=== PATIENT | male | born 1950 | race Caucasian/White ===

== ENCOUNTER → 2020-02-08 09:59 | Outpatient (CLI) | payer MEDICARE, OTHER, SELFPAY ==
--- NOTE | ~2020-02-08 | XR_ITS ---
EXAMINATION: CT abdomen pelvis wo con, XR abdomen/kub 1V DATE: 02/08/2020 10:21 INDICATION: Flank pain. TECHNIQUE: 1. Computed tomography (CT) of the abdomen and pelvis was performed without intravenous contrast. Aut omated exposure control and iterative reconstruction technique were employed. The dose-length product was 1008.26 mGy-cm. 2. AP view of the abdomen and pelvis was obtained on 2 radiographs. COMPARISON: CT dated 11/29/2016 and KUB dated 12/01/2017 FINDINGS: CT: Chronic peripheral atelectasis/scarring in the bilateral lower lobes. Pneumatocele and small calcifie d granuloma in the right lower lobe. Heart size is normal. Atherosclerotic coronary artery calcificat ion. No pericardial or pleural effusion. Single small hepatic calcified calcification and several spl enic calcifications consistent with old granulomatous disease. Gallbladder, pancreas and bilateral ad renal glands are normal. 8 mm exophytic right renal lesion most likely a cyst but which is too small to definitively characterize. Nonobstructing 1 mm stone in the upper pole calyx of the right kidney a nd 3 mm stone at a lower pole calyx of the left kidney. Several small parapelvic cysts at the left ki dney. No hydronephrosis or stones seen along the course of the ureters. There is moderate colonic div erticulosis with a sigmoid predominance. There is no adjacent inflammatory change to suggest diverti culitis. No bowel obstruction. The appendix is not visualized. No pericecal inflammatory change to arguelles ggest acute appendicitis. Bladder is normal. No free intraperitoneal gas or fluid. No pathologically enlarged abdominal or pelvic lymphadenopathy. Small fat-containing umbilical hernia. Mild lumbar levo curvature with severe spondylosis. Left total hip arthroplasty. KUB: The 3 mm stone at the lower pole of the left kidney can be seen on the plain radiographs. The [address] one at the upper pole of the right kidney is too small to be visualized. Normal bowel gas pattern. IMPRESSION: 1. Bilateral nonobstructing nephrolithiasis. 2. Sigmoid diverticulosis. 3. Small fat-containing umbilical hernia. Reviewed, dictated and finalized at location B. IMPRESSION: 1. Bilateral nonobstructing nephrolithiasis. 2. Sigmoid diverticulosis. 3. Small fat-containing umbilical hernia.
== END ==
PROVIDERS: PCP Internal Medicine; Visit Provider Nurse Practitioner Adult Health
DX: R10.9 Unspecified abdominal pain (principal); N20.0 Calculus of kidney; K57.30 Diverticulosis of large intestine without perforation or abscess without bleeding; K44.9 Diaphragmatic hernia without obstruction or gangrene
CPT/HCPCS: 74018; 74176

== ENCOUNTER 2021-04-25 09:12 | Outpatient (CLI) | payer MEDICARE, OTHER, SELFPAY ==
--- NOTE | 2021-04-25 11:00 | NEURO_ITS ---
Impression: # Complains of numbness of right hand. # Right Carpal Tunnel Syndrome. # No ulnar neuropathy. # Needle/EMG exam not requested. Nerve Conduction Studies Anti Sensory Summary Table Stim Site NR Peak (ms) P-T Amp (?V) Site1 Site2 Delta-P (ms) Dist (cm) Dieter (m/s) Right Median Anti Sensory (2-3nd Digit) NO RESPONSE Wrist NR Wrist 2-3nd Digit 14.0 Wrist NR Wrist 2-3nd Digit 14.0 Right Radial Anti Sensory (Base 1st Digit) Wrist 2.7 21.7 Wrist Base 1st Digit 2.7 0.0 Right Ulnar Anti Sensory (5th Digit) Wrist 2.8 14.0 Wrist 5th Digit 2.8 14.0 50 Motor Summary Table Stim Site NR Onset (ms) O-P Amp (mV) Site1 Site2 Delta-0 (ms) Dist (cm) Dieter (m/s) Right Median Motor (Abd Poll Brev) Wrist 4.6 0.5 Elbow Wrist 5.3 32.0 60 Elbow 9.9 3.6 Right Ulnar Motor (Abd Dig Minimi) Wrist 2.7 6.3 A Elbow Wrist 5.1 31.0 61 A Elbow 7.8 5.5 F Wave Studies NR F-Lat (ms) L-R F-Lat (ms) Right Median (Mrkrs) (Abd Poll Brev) 28.89 Right Ulnar (Mrkrs) (Abd Dig Min) 29.73 MTDD
== END 2021-04-25 09:13 | disposition home or self-care (01) ==
PROVIDERS: PCP Internal Medicine; Visit Provider Internal Medicine
DX: G56.01 Carpal tunnel syndrome, right upper limb (principal); R20.2 Paresthesia of skin; M19.90 Unspecified osteoarthritis, unspecified site
CPT/HCPCS: 95909

== ENCOUNTER 2023-08-27 08:12 | Day surgery (SDC) | payer MEDICARE, OTHER, SELFPAY ==
[2023-08-13 11:23] VITALS: BMI 33.3
[2023-08-27 09:31] VITALS: BP 128/85; PULSE 65; RESP 18; TEMP 36.4; O2SAT 99
[2023-08-27] MEDS: LACTATED RINGERS 1,000 ML 150 ML IV CONT (09:58)
--- NOTE | 2023-08-27 09:59 | SUR.PREOP ---
Pt states needing to go to bathroom during pre-op for colonoscopy at [facility]. When pt came out of the bathroom stated that he noticed a skin tear to right hand in-between second and third digit. Pt states he does not know how he got it but noticed he was bleeding while going to the bathroom. Wound cleaned and bandage applied. No further bleeding noted. Pt states no further needs at this time and appears to be in no apparent distress.
--- NOTE | 2023-08-27 10:07 | SUR.PREOP ---
LATE NOTE 08/14/[address] Schafer regarding pt's PE history and being on Eliquis. Per Dr. Schafer pt okay to come to [facility] for procedure with PE history and to contact prescribing physician regarding pt's Eliquis hold. Fax sent to Dr. Roa ([place]) regarding authorization for pt to hold Eliquis for two days per Dr. Forman.
--- NOTE | 2023-08-27 10:10 | WPDANESEPPF ---
Anes - Initial Pre Proc Eval Procedure: Operation Date: 08/27/23 10:30 Proposed Procedures p Esophagogastroduodenoscopy - Boston Forman MD s Diagnostic Colonoscopy - Boston Forman MD Date/Time: 08/27/23 10:10 Surgeon: Boston Forman MD Pre Op Diagnosis: GERD w/o esophagitis,right upper quad pain, change Patient Data Age: 73 Gender: M Height: 1.78 m Weight: 107.25 kg Last Vital Signs Temp 36.4 C 08/27/23 09:31 Pulse 65 08/27/23 09:31 Resp 18 08/27/23 09:31 BP 128/85 08/27/23 09:31 Pulse Ox 99 08/27/23 09:31 O2 Del Method Room Air 08/27/23 09:31 Allergies Allergy/AdvReac Type Severity Reaction Status Date / Time aspirin Allergy Unknown Unknown Verified 08/27/23 09:18 Home Medications Medication Instructions Recorded Confirmed Type cholecalciferol (vitamin D3) 50 50 mcg PO DAILY 09/03/22 08/27/23 History mcg (2,000 unit) capsule ferrous sulfate 140 mg (45 mg 140 mg PO DAILY 09/03/22 08/27/23 History iron) tablet,extended release (Slow Release Iron) finasteride 5 mg tablet 5 mg PO DAILY 09/03/22 08/27/23 History magnesium oxide 500 mg PO DAILY 09/03/22 08/27/23 History clotrimazole-betamethasone 1 1 applic topical BID #15 grams 02/27/23 08/27/23 Rx %-0.05 % topical cream pantoprazole 40 mg tablet,delayed See Rx Instructions .Route 04/21/23 08/27/23 Rx release .COMPLEX #90 tabs levothyroxine 50 mcg tablet See Rx Instructions .Route 05/07/23 08/27/23 Rx .COMPLEX #90 tabs tramadol 50 mg tablet 50 mg PO Q6H PRN pain #60 tabs 05/21/23 08/27/23 Rx apixaban 5 mg tablet (Eliquis) See Rx Instructions .Route 07/23/23 08/27/23 Rx .COMPLEX #60 tabs nebivolol 5 mg tablet See Rx Instructions .Route 07/29/23 08/27/23 Rx .COMPLEX #90 tabs Patient hx anesthesia problems: none Family hx anesthesia problems: none Results Review: All pre-operative results and documents have been reviewed as part of the pre-operative evaluation. PENDING SALE TO [facility] Past Medical History Medical History Arthritis Atypical nevi Blood clot in vein Change in bowel habits Establishing care with new doctor, encounter for Ganglion cyst of volar aspect of right wrist GERD (gastroesophageal reflux disease) Keratosis Kidney stone Left hip pain Left knee pain Loose stools Osteoarthritis Otitis externa Right knee pain RUQ pain Screening for colon cancer Surgical History Surgical History History of carpal tunnel surgery (06/05/20) Dr. Roa History of left hip replacement (1994) Status post left hip replacement Family History Family History Mother Family history of malignant neoplasm Tongue cancer Father Diabetes mellitus Other Family history of arthritis Hypertension Social History Social History Smoking status: Never smoker Alcohol intake: current Drinks per week: 2 Alcohol use details: beer Substance use: never Substance use type: does not use Do You Feel Safe in your Home?: Yes Lack of Transportation: No Lack of Food: Never True Current Housing: I Have Housing Concerned About Future Housing: No Difficulty Paying Gas/Electric Bills: No Difficulty Paying for Meds: No Currently Unemployed: No Education: Don't Know Difficulty w/ Childcare or Family Care: No Living arrangements: with family Occupation/Education: retired Gender identity (if verbalized by the patient): Male Agree to blood products: Yes Anes - Eval Final PreProcedure Day of Procedure 08/27/23 10:10 Patient weight: obese Heart: regular rate and rhythm Lungs: clear to auscultation Airway: Mallampati scale class II Neurological: alert and oriented Last oral intake: >/= 8 hours ASA classification: III Emergent: no Anesthetic plan: p
--- NOTE | 2023-08-27 10:25 | WPDHPUPDATE1 ---
History and Physical Update Update Date/Time: 08/27/23 10:25 History and Physical has been reviewed, including an updated exam of the patient. There are NO changes in the patient's condition. Risks, benefits, and alternatives have been discussed and questions answered. Patient agrees to proceed with procedure.
[2023-08-27 11:06] VITALS: BP 98/67; PULSE 65; RESP 15; O2SAT 99
[2023-08-27 11:16] VITALS: BP 98/60; PULSE 56; RESP 16; O2SAT 100
[2023-08-27 11:26] VITALS: BP 118/74; PULSE 64; RESP 16; O2SAT 100
--- NOTE | 2023-08-27 11:43 | WPDANESPN ---
Anes - Prog Note Post-Op Date/Time: 08/27/23 11:43 Cardiovascular status: normal Respiratory status: normal Airway patency: baseline Mental status: baseline Post-Op hydration status: normal Vital Signs: Last Vital Signs Temp 36.4 C 08/27/23 09:31 Pulse 64 08/27/23 11:26 Resp 16 08/27/23 11:26 BP 118/74 08/27/23 11:26 Pulse Ox 100 08/27/23 11:26 O2 Del Method Room Air 08/27/23 11:26 Pain Score (VAS): 0 I/O: Intake & Output 08/26/23 08/27/23 08/27/23 23:59 07:59 15:59 Intake Total 700 Balance 700 Patient Feedback: Patient satisfied with anesthetic care.
== END 2023-08-27 11:50 | disposition home or self-care (01) ==
PROVIDERS: PCP Family Medicine; Visit Provider Internal Medicine Gastroenterology
PROC: 0DJ08ZZ Inspection of Upper Intestinal Tract, Via Natural or Artificial Opening Endoscopic (ICD-10-PCS; CPT 43235; principal; 2023-08-27 10:30)
PROC: 0DJD8ZZ Inspection of Lower Intestinal Tract, Via Natural or Artificial Opening Endoscopic (ICD-10-PCS; CPT 45378; 2023-08-27 10:30)
DX: D12.2 Benign neoplasm of ascending colon (principal); K57.30 Diverticulosis of large intestine without perforation or abscess without bleeding; K64.8 Other hemorrhoids; K31.7 Polyp of stomach and duodenum; R10.11 Right upper quadrant pain; K30 Functional dyspepsia
CPT/HCPCS: 45385; 43251; 43239

== ENCOUNTER 2023-08-27 10:23 | Outpatient (NON) | payer MEDICARE, OTHER, SELFPAY | END 2023-08-27 10:24 | disposition home or self-care (01) | PROVIDERS: PCP Family Medicine; Visit Provider Internal Medicine Gastroenterology | DX: K31.7 Polyp of stomach and duodenum (principal); D12.2 Benign neoplasm of ascending colon | CPT/HCPCS: 88305 ==